=== PATIENT | female | born 1950 | race Caucasian/White ===

== ENCOUNTER → 2018-06-21 | Outpatient (CLI) | payer MEDICARE ==
[~2018-06-21] MED LIST: ASPI1TAB31 PO
[2018-06-21 10:33] LABS: BASOPHILS # (AUTO) 0.07 x10^3/uL (0-0.1); BASOPHILS % (AUTO) 1 % (0-1); EOSINOPHILS # (AUTO) 0.18 x10^3/uL (0-0.4); EOSINOPHILS % (AUTO) 2 % (1-7); LYMPHOCYTES # (AUTO) 2.05 x10^3/uL (1-3.4); LYMPHOCYTES % (AUTO) 17 % (22-44); MD NO; MEAN CORPUSCULAR HEMOGLOBIN 30.3 pg (27.0-34.8); MEAN CORPUSCULAR HGB CONC 34.1 g/dL (32.4-35.8); MEAN PLATELET VOLUME 8.2 fL (7.4-10.4); MONOCYTES # (AUTO) 0.79 x10^3/uL (0.2-0.8); MONOCYTES % (AUTO) 7 % (2-9); NEUTROPHILS # (AUTO) 9.01 x10^3/uL (1.8-6.8); NEUTROPHILS % (AUTO) 74 % (42-75); PLATELET COUNT 359 x10^3/uL (130-400); RED BLOOD COUNT 5.49 x10^6/uL (3.82-5.3); RED CELL DISTRIBUTION WIDTH 13.8 % (9.6-15.2)
[2018-06-21 10:42] LABS: MICROSCOPIC AUTO
[2018-06-21 10:46] LABS: CULTURE INDICATED? NO
== END | disposition home or self-care (01) ==
LOC: STAR 09:08
PROVIDERS: ATTEND Orthopaedic Surgery
DX: Z01.818 Encounter for other preprocedural examination (principal); M17.12 Unilateral primary osteoarthritis, left knee; Z87.891 Personal history of nicotine dependence
CPT/HCPCS: 36415; 81001; 85025; 87081; 87806; 93005; G0475

== ENCOUNTER 2018-07-02 05:42 | Observation (INO) | payer MEDICARE ==
[2018-06-21 11:30] VITALS: BP 155/87
[~2018-07-02] VITALS: Ht 162.6 cm; Wt 76.8 kg
[2018-07-02] MEDS ORDERED: VANCOMYCIN PMX 1GM/200ML 200 ML IV STA (06:02)
[2018-07-02] MEDS ORDERED: LACTATED RINGERS 1,000 ML IV SCH (06:16)
[2018-07-02] MEDS ORDERED: OXYC-306 PO (06:19)
[2018-07-02] MEDS ORDERED: FLU VACC QS2017-18 (36MOS+) UP/PF 0.5 ML IM-VACC ONE (06:30)
[2018-07-02] MEDS ORDERED: FLU VACCINE PER PHARMACY IM ONE (06:30)
[2018-07-02] MEDS ORDERED: LIDOCAINE-MPF 1%, 2ML INFIL ONE (06:30)
[2018-07-02] MEDS ORDERED: KETOROLAC 60 MG/2 ML ONE (06:33)
[2018-07-02] MEDS ORDERED: TRANEXAMIC ACID 100 MG/ML, 10ML ONE (06:33)
[2018-07-02] MEDS ORDERED: EPINEPHRINE 1 MG/ML, 1ML ONE (06:33)
[2018-07-02] MEDS ORDERED: morphine SULFATE/PF 1 MG/ML, 10ML ONE (06:33)
[2018-07-02] MEDS ORDERED: SODIUM CHLORIDE 0.9% 100 ML ONE (06:33)
[2018-07-02] MEDS ORDERED: BACITRACIN 50,000 UNIT ONE (06:33)
[2018-07-02] MEDS ORDERED: ROPIvacaine/PF 0.2%, 20 ML ONE (06:44)
[2018-07-02] MEDS ORDERED: MIDAZOLAM 1 MG/ML, 2ML ONE (06:44)
[2018-07-02] MEDS ORDERED: FENTANYL PF 250 MCG/5ML ONE (06:44)
[2018-07-02] MEDS ORDERED: GABAPENTIN 300 MG CAPSULE PO ONE (07:00)
[2018-07-02] MEDS ORDERED: OXYcodone IR 5MG TABLET PO ONE (07:00)
[2018-07-02] MEDS ORDERED: ACETAMINOPHEN 500 MG TABLET PO ONE (07:00)
[2018-07-02] MEDS ORDERED: ALBUTEROL SULFATE 200 PUFFS/8.5 GR INH ONE (07:21)
[2018-07-02] MEDS ORDERED: hydrALAzine 20 MG/ML, 1ML ONE (07:21)
[2018-07-02] MEDS ORDERED: SCOPOLAMINE PATCH, 1.5MG PATCH.TD72 TD PRN (08:00)
[2018-07-02] MEDS ORDERED: DIPHENHYDRAMINE 50 MG/ML, 1ML IVPush PRN (08:00)
[2018-07-02] MEDS ORDERED: LABETALOL 5MG/ML, 20ML IV PRN (08:00)
[2018-07-02] MEDS ORDERED: OXYcodone 5 MG/5 ML ORAL.SOL UDC PO PRN (08:00)
[2018-07-02] MEDS ORDERED: HALOPERIDOL 5 MG/ML IV PRN (08:00)
[2018-07-02] MEDS ORDERED: hydrALAzine 20 MG/ML, 1ML IV PRN (08:00)
[2018-07-02] MEDS ORDERED: METOPROLOL 1 MG/ML, 5ML IV PRN (08:00)
[2018-07-02] MEDS ORDERED: PROCHLORPERAZINE 5 MG/ML, 2ML IV PRN (08:00)
[2018-07-02] MEDS ORDERED: MEPERIDINE/PF 25MG/0.5ML IVPush PRN (08:00)
[2018-07-02] MEDS ORDERED: ROCURONIUM 10MG/ML,5ML ONE (08:20)
[2018-07-02] MEDS ORDERED: DEXAMETHASONE 4 MG/ML, 1ML ONE (08:20)
[2018-07-02] MEDS ORDERED: PROPOFOL 10 MG/ML, 20ML ONE (08:20)
[2018-07-02] MEDS ORDERED: ONDANSETRON 2MG/ML, 2ML ONE (08:20)
[2018-07-02] MEDS ORDERED: GLYCOPYRROLATE 0.2MG/1ML, 5ML ONE (08:20)
[2018-07-02] MEDS ORDERED: CEFAZOLIN 1,000 MG ONE (08:20)
[2018-07-02] MEDS ORDERED: NEOSTIGMINE 1 MG/ML, 10ML ONE (08:20)
[2018-07-02] MEDS ORDERED: SUCCINYLCHOLINE 20 MG/ML, 10ML ONE (08:20)
[2018-07-02] MEDS ORDERED: FENTANYL PF 100 MCG/2ML ONE (09:20)
[2018-07-02] MEDS: FENTANYL PF 100 MCG/2ML IV PRN ×2 (09:25→09:32)
[2018-07-02] MEDS ORDERED: ACETAMINOPHEN 325 MG TABLET PO PRN (09:30)
[2018-07-02] MEDS ORDERED: ZOLPIDEM 5MG TABLET PO PRN (09:30)
[2018-07-02] MEDS ORDERED: TRANEXAMIC ACID 1,000 MG in SODIUM CHLORIDE 0.9% 100 ML IV ONE (09:30)
[2018-07-02] MEDS ORDERED: morphine SULFATE 10 MG/ML, 1ML IVPush PRN (09:30)
[2018-07-02] MEDS ORDERED: LORazepam 2 MG/ML, 1ML IVPush PRN (09:30)
[2018-07-02] MEDS ORDERED: OXYcodone/APAP 7.5/325MG TABLET PO PRN (09:30)
[2018-07-02] MEDS ORDERED: DIPHENHYDRAMINE 50 MG CAPSULE PO PRN (09:30)
[2018-07-02] MEDS ORDERED: HYDROmorphone 2 MG/ML, 1ML ONE (09:34)
[2018-07-02] MEDS ORDERED: OXYcodone 5 MG/5 ML ORAL.SOL UDC ONE (09:34)
[2018-07-02] MEDS: HYDROmorphone 1 MG/ML, 1ML IV PRN ×2 (09:50→10:09)
[2018-07-02] MEDS ORDERED: DIPHENHYDRAMINE 50 MG/ML, 1ML ONE (09:56)
[2018-07-02] MEDS: ONDANSETRON 2MG/ML, 2ML IVPush PRN ×2 (10:52→14:36)
[2018-07-02] MEDS ORDERED: ASA/APAP/ CAFFEINE TABLET PO PRN (11:00)
[2018-07-02] MEDS: D5%-0.45% NACL 1,000 ML IV SCH ×2 (12:40→13:16)
[2018-07-02 13:57] VITALS: BP 122/82
[2018-07-02] MEDS ORDERED: CEFAZOLIN PMX 1GM/50ML 50 ML IVPB SCH (17:00)
[2018-07-03] MEDS ORDERED: ASPIRIN 325 MG TABLET EC PO SCH (17:00)
[2018-07-03] MEDS ORDERED: DOCUSATE 100 MG CAPSULE PO SCH (21:00)
== END 2018-07-02 16:53 | disposition home or self-care (01) ==
LOC: OUT 05:42 → ORIP 09:15 → 4NOR 10:30
PROVIDERS: ADMIT Orthopaedic Surgery; ATTEND Orthopaedic Surgery
DX: M17.12 Unilateral primary osteoarthritis, left knee (principal); Z87.891 Personal history of nicotine dependence; Z23 Encounter for immunization
CPT/HCPCS: 27447; 73564; 90471; 90686; 96365; 96375; 96376; 97110; 97116; 97161; C1713; C1776; G0378; G8978; G8979; G8980; J0171; J0330; J0360; J0690; J1100; J1170; J1885; J2250; J2274; J2405; J2704; J2710; J2795; J3010; J3370; J3490; J7120

== ENCOUNTER 2019-04-23 08:06 | Outpatient (CLI) | payer MEDICARE, OTHER | END 2019-04-23 23:59 | disposition home or self-care (01) | LOC: STAR 08:06 | PROVIDERS: ATTEND Orthopaedic Surgery | DX: Z01.818 Encounter for other preprocedural examination (principal); M17.11 Unilateral primary osteoarthritis, right knee | CPT/HCPCS: 36415; 80048; 81001; 85025; 87081; 87806; 93005; G0475 ==

== ENCOUNTER 2021-04-27 12:36 | Day surgery (SDC) | payer MEDICARE, OTHER ==
[2021-04-26 12:47] LABS: BASOPHILS % (AUTO) 1 % (0-1); EOSINOPHILS % (AUTO) 2 % (1-7); LYMPHOCYTES % (AUTO) 18 % (22-44); MEAN CORPUSCULAR HEMOGLOBIN 29.8 pg (27.0-34.8); MEAN CORPUSCULAR HGB CONC 33.4 g/dL (32.4-35.8); MEAN PLATELET VOLUME 8.2 fL (7.4-10.4); MONOCYTES % (AUTO) 7 % (2-9); NEUTROPHILS % (AUTO) 72 % (42-75); PLATELET COUNT 335 x10^3/uL (130-400); RED BLOOD COUNT 5.27 x10^6/uL (3.82-5.3); RED CELL DISTRIBUTION WIDTH 13.9 % (9.6-15.2)
[2021-04-26 13:01] LABS: ANION GAP 4 mmol/L (5-15); CHLORIDE 104 mmol/L (98-107); CREATININE 0.69 mg/dL (0.55-1.02)
[2021-04-26 13:06] LABS: INTERNATIONAL NORMALIZED RATIO 0.96 (0.93-1.1); PROTHROMBIN TIME 10.3 Seconds (9.6-11.5)
[~2021-04-27] VITALS: Ht 165.1 cm; Wt 79.8 kg
[~2021-04-27 12:36] MED LIST changes: +CLINDAMYCIN 150 MG/ML, 6ML ONE; +OXYC1TAB17 PO
[2021-04-27 13:07] VITALS: BP 166/104
[2021-04-27] MEDS ORDERED: MIDAZOLAM 1 MG/ML, 2ML ONE (13:19)
[2021-04-27] MEDS ORDERED: FENTANYL PF 250 MCG/5ML ONE (13:19)
[2021-04-27] MEDS ORDERED: MEPERIDINE/PF 25MG/0.5ML IVPush PRN (13:30)
[2021-04-27] MEDS ORDERED: VANCOMYCIN 1,300 MG in SODIUM CHLORIDE 0.9% 250 ML IV ONE (13:30)
[2021-04-27] MEDS ORDERED: LABETALOL 5MG/ML, 20ML IV PRN (13:30)
[2021-04-27] MEDS ORDERED: HALOPERIDOL 5 MG/ML IV PRN (13:30)
[2021-04-27] MEDS ORDERED: LIDOCAINE-MPF 1%, 2ML INFIL ONE (13:30)
[2021-04-27] MEDS ORDERED: HYDROmorphone 1 MG/ML, 1ML INJ IVPush PRN (13:30)
[2021-04-27] MEDS ORDERED: OXYcodone 5 MG/5 ML ORAL.SOL UDC PO PRN (13:30)
[2021-04-27] MEDS ORDERED: DIPHENHYDRAMINE 50 MG/ML, 1ML IVPush PRN (13:30)
[2021-04-27] MEDS ORDERED: PROMETHAZINE 25 MG/ML, 1ML IVPush PRN (13:30)
[2021-04-27] MEDS ORDERED: FENTANYL PF 100 MCG/2ML IV PRN (13:30)
[2021-04-27] MEDS ORDERED: hydrALAzine 20 MG/ML, 1ML IV PRN (13:30)
[2021-04-27] MEDS ORDERED: CHLORHEXIDINE 15 ML UDC PO ONE (13:30)
[2021-04-27] MEDS ORDERED: LACTATED RINGERS 1,000 ML IV SCH (13:30)
[2021-04-27] MEDS ORDERED: ACETAMINOPHEN 325 MG TABLET PO PRN (13:30)
[2021-04-27] MEDS ORDERED: VANCOMYCIN PER PHARMACY MC PRN (13:30)
[2021-04-27] MEDS ORDERED: EPHEDRINE 50 MG/ML, 1ML ONE (14:46)
[2021-04-27] MEDS ORDERED: BUPIVACAINE LIPOSOME/PF 10ML INFIL ONE (15:00)
[2021-04-27] MEDS ORDERED: DEXAMETHASONE 4 MG/ML, 1ML ONE (15:21)
[2021-04-27] MEDS ORDERED: SUCCINYLCHOLINE 20 MG/ML, 10ML ONE (15:21)
[2021-04-27] MEDS ORDERED: BUPIVACAINE/PF 0.25% ONE (15:21)
[2021-04-27] MEDS ORDERED: CEFAZOLIN 1,000 MG ONE (15:21)
[2021-04-27] MEDS ORDERED: GLYCOPYRROLATE 0.2MG/1ML, 5ML ONE (15:21)
[2021-04-27] MEDS ORDERED: NEOSTIGMINE 1 MG/ML, 10ML ONE (15:21)
[2021-04-27] MEDS ORDERED: PROPOFOL 10 MG/ML, 20ML ONE (15:21)
[2021-04-27] MEDS ORDERED: ROCURONIUM 10MG/ML,5ML ONE (15:21)
[2021-04-27] MEDS ORDERED: ONDANSETRON 2MG/ML, 2ML ONE (15:21)
== END 2021-04-27 19:00 | disposition home or self-care (01) ==
LOC: OUT 12:36
PROVIDERS: ATTEND Orthopaedic Surgery
DX: M19.012 Primary osteoarthritis, left shoulder (principal); M65.812 Other synovitis and tenosynovitis, left shoulder; M25.712 Osteophyte, left shoulder; J44.9 Chronic obstructive pulmonary disease, unspecified; Z79.01 Long term (current) use of anticoagulants; Z79.899 Other long term (current) drug therapy
CPT/HCPCS: 23472; 36415; 64415; 80048; 83036; 85025; 85610; 85730; 87081; 93005; C1713; C1776; J0330; J1100; J2250; J2405; J2704; J2710; J3010; J3370; J7050; J7120; J0690